=== PATIENT | female | born 1960 | race Caucasian/White ===

== ENCOUNTER → 2016-08-25 | Outpatient (CLI) | payer BC ==
--- NOTE | 2016-08-25 22:10 | MR ---
EXAMINATION TYPE: MR lumbar spine wo con DATE OF EXAM: 08/25/2016 2:54 PM COMPARISON: NONE HISTORY: lumbar radiculopathy, back and hip pain TECHNIQUE: Multiplanar, multisequence images of the lumbar spine were acquired. L1-L2: Normal disc appearance without desiccation. No herniation, protrusion or disc bulging. No ca nal stenosis is present. Foramina are patent bilaterally. L2-L3: Normal disc appearance without desiccation. No herniation, protrusion or disc bulging. No ca nal stenosis is present. Foramina are patent bilaterally. L3-L4: Normal disc appearance without desiccation. No herniation, protrusion or disc bulging. No ca nal stenosis is present. Foramina are patent bilaterally. L4-L5: Posterior central disc bulge causes anterior mass effect on the thecal sac. There is some mild facet arthropathy, no significant central stenosis. L5-S1: Circumferential extension of endplate disc complex causes mild foraminal encroachment, contrib uting by scoliosis. There is facet arthropathy changes, minimal posterior broad-based disc bulge caus es slight anterior mass effect on the thecal sac Lumbar segments are intact. No paraspinal masses are identified. Conus medullaris has a normal appe arance. Loss of disc height and signal greatest at L4-5, there is endplate discogenic marrow signal c hange. The conus is at L1-2 and shows an unremarkable appearance. There is a spinal curvature. IMPRESSION: Mild degenerative disc disease and facet arthropathy. No significant central stenosis, there is spina l curvature.
== END | disposition home or self-care (01) ==
LOC: RADMRIMAIN 14:02
PROVIDERS: ATTEND Nurse Practitioner
DX: M51.16 Intervertebral disc disorders with radiculopathy, lumbar region (principal); M46.96 Unspecified inflammatory spondylopathy, lumbar region; M41.86 Other forms of scoliosis, lumbar region
CPT/HCPCS: 72148

== ENCOUNTER → 2016-10-26 | Outpatient (CLI) | payer BC ==
--- NOTE | 2016-10-30 11:21 | MM ---
Reason for exam: screening (asymptomatic). Last mammogram was performed 1 year and 1 month ago. History: Patient is postmenopausal and history of other cancer. Physical Findings: A clinical breast exam by your physician is recommended on an annual basis and results should be correlated with mammographic findings. MG Screening Mammo w CAD Bilateral CC and MLO view(s) were taken. Prior study comparison: September 13, 2015, mammogram, performed at [facility]. November 07, 2011, mammogram, performed at [facility]. There are scattered fibroglandular densities. No significant changes when compared with prior studies. ASSESSMENT: Negative, BI-RAD 1 RECOMMENDATION: Routine screening mammogram of both breasts in 1 year.
== END ==
LOC: RADMAMWWP 13:33
PROVIDERS: ATTEND Family Medicine
DX: Z12.31 Encounter for screening mammogram for malignant neoplasm of breast (principal)

== ENCOUNTER → 2017-06-13 | Outpatient (CLI) | payer BC ==
--- NOTE | 2017-06-13 12:57 | CONS ---
CONSULTATION DATE OF SERVICE: 06/13/2017 A 56-year-old lady has been evaluated in Sleep Center for her sleep problem including possibility of obstructive, periodic limb movements and restless legs. HISTORY OF PRESENT ILLNESS/SLEEP WAKE EVALUATION: SLEEP SCHEDULE: Patient's usual sleep schedule from around 8 to 8:30 p.m. until 7 to 8:30 a.m. FALLING ASLEEP: She always has problem with falling asleep and sometimes it may take several hours for her to fall asleep. DURING THE SLEEP: She snores according to her and she wakes up from sleep 7 times with nocturia, gasping for air, choking, dry mouth, heartburn. She has difficulties to fall asleep, also secondary to restless leg symptoms. No history of hypnagogic hallucinations, sleep paralysis or cataplexy. [place] Sleepiness Scale is 5. PAST MEDICAL HISTORY: Positive for hypertension, hyperlipidemia, back problems. PAST SURGICAL HISTORY: Bladder suspension, tonsillectomy, tubal ligation. MEDICATIONS: Hydroxyzine, niacin, metoprolol, meloxicam. SOCIAL HISTORY: Negative for smoking or using alcohol. REVIEW OF SYSTEMS: Difficulties to initiate sleep, multiple awakenings from sleep with choking and nocturia and restless legs symptoms. No fevers. No double vision. No recent chest pain. No shortness of breath. No abdominal pain. No bleeding episodes. No blood in urine. No seizure episodes. FAMILY HISTORY: Hypertension, heart problems, hyperlipidemia, asthma, sleep apnea, snoring, diabetes, restless legs. PHYSICAL EXAM: During physical exam, a lady without distress. VITAL SIGNS: BP 143/92, HR 76, RR 16, height 5 feet 8 inches, weight 218, BMI 33.1. Neck 15-1/2 inches in circumference. Temp 97.9. Oxygen saturation in room air 98%. HEENT: PERRLA, EOMI. Oropharynx extremely low position of soft palate. Mallampati 4. Some restriction of nasal breathing. NECK: Supple, no JVD. Thyroid is not palpable. LUNGS: Clear to percussion and to auscultation. Good air exchange. No wheezing or rhonchi. HEART: S1, S2 regular. No murmurs, gallops, or rubs. ABDOMEN: Slightly obese. EXTREMITIES: No clubbing or cyanosis. GOLF STUD RIVETER: Awake, alert, and oriented X3. Cranial nerves 2 to 7 intact. There is no fasciculation or atrophy. noted. No focal deficits observed. IMPRESSION: 1. Snoring, multiple awakenings from sleep with nocturia and choking extremely low position of soft palate, obstructive sleep apnea-hypopnea syndrome. 2. Difficulties to initiate sleep, psychophysiological insomnia. 3. Symptoms of restless legs difficulties to initiate sleep could be related to restless legs. 4. Hypertension. 5. Hyperlipidemia. 6. Back problems. 7. Status post bladder suspension. 8. Status post tonsillectomy. 9. Status post tubal ligation. PLAN: 1. Polysomnography for evaluation of patient's breathing during sleep and to check for her periodic limb movements and possibility of restless legs. 2. CPAP/BiPAP titration if sleep study confirms obstructive sleep apnea-hypopnea syndrome. 3. Preferable position during sleep on the side. 4. No driving if patient feels any sleepiness. Patient is aware of civil and criminal liability for unsafe driving. 5. I will see patient for follow up visit to explain results of testing and following plan. 6. Different psychological techniques for treatment of insomnia, should include stimulus control, paradoxical intention, worry time. I discussed it with the patient. Thank you very much for allowing me to participate management of your patient. Sincerely. Leander Ramos MD, PhD, FAASM Diplomat of [employer] Refractory Mixer of [facility] [place] MMODL / RODOLFO: [id number] /
== END | disposition home or self-care (01) ==
LOC: SLEEP 11:47
PROVIDERS: ATTEND Internal Medicine
DX: G47.33 Obstructive sleep apnea (adult) (pediatric) (principal); F51.04 Psychophysiologic insomnia; I10 Essential (primary) hypertension; E78.5 Hyperlipidemia, unspecified; Z98.890 Other specified postprocedural states
CPT/HCPCS: 99211

== ENCOUNTER → 2017-10-24 | Outpatient (CLI) | payer BC ==
--- NOTE | 2017-10-24 15:39 | PN ---
PROGRESS NOTE DATE OF SERVICE: 10/24/2017 57-year-old lady who has been followed in Sleep Center for treatment of obstructive sleep apnea-hypopnea syndrome. Recently patient had a polysomnogram and CPAP titration and I discussed results of sleep studies with patient in details. Polysomnogram showed moderate obstructive sleep apnea with apnea-hypopnea index 25.3, and oxygen desaturation to 83.4%. She was on control with CPAP at 8 cm of water. Subsequently patient received her CPAP unit and started to use it. She is able to use CPAP equipment without any problems. She feels better while she sleeps. She does not wake up from sleep anymore and she does not feel too tired and sleepy as she was before. I checked her CPAP unit. CPAP pressure is 8 cm of water. Usage is 100% of the time more than 4 hours. Average 6.8 hours. Leak is only 5 L/minute which is perfect. Apnea- hypopnea index for the last month 1.7 for the last night, 0.8. CURRENT MEDICATIONS: Hydroxyzine, niacin, metoprolol, meloxicam. PHYSICAL EXAM: Patient in no distress. BP 122/70, HR 76, RR 16, weight 212, temp 98.1. Oxygen saturation on room air 95%. Oropharynx extremely low position of soft palate. Abdomen slightly obese. Neck Supple, no JVD. Thyroid is not palpable. LUNGS Clear to percussion and to auscultation. Good air exchange. No wheezing or rhonchi. HEART S1, S2 regular. No murmurs, gallops, or rubs. ABDOMEN: Slightly obese. Soft and nontender. Bowel sounds are present. No organomegaly appreciated. EXTREMITIES No clubbing or cyanosis. CABLE SPLICER APPRENTICE Awake, alert, and oriented X3. Cranial nerves 2 to 7 intact. There is no fasciculation or atrophy. noted. No focal deficits observed. IMPRESSION: 1. Apnea-hypopnea syndrome; apnea-hypopnea index 25.3 with oxygen saturation to 83.4% on control with CPAP at 8 cm of water. Patient demonstrated 100% compliance with treatment benefitting from treatment. 2. Hypertension. 3. Hyperlipidemia. 4. History of restless leg symptoms. 5. Back problems. 6. Status post bladder suspension. 7. Status post tonsillectomy. 8. Status post tubal ligation. PLAN: 1. Patient will continue to use CPAP equipment every night for the whole night. 2. Watching and losing weight. 3. Sleep hygiene today with regular time in bed for at least 7 to 8 hours. 4. No driving if feeling sleepiness. 5. Followup visit in 10 months, it has been 1 year since we did the sleep study. Thank you very much for allowing me to participate in management of your patient. Sincerely, Leander Ramos MD, PhD, FAASM Diplomat of [employer] Customs Broker of [facility] [place] MMODL / IJN: [id number] /
== END | disposition home or self-care (01) ==
LOC: SLEEP 13:37
PROVIDERS: ATTEND Internal Medicine
DX: G47.33 Obstructive sleep apnea (adult) (pediatric) (principal); G25.81 Restless legs syndrome; I10 Essential (primary) hypertension; E78.5 Hyperlipidemia, unspecified; Z90.89 Acquired absence of other organs; Z98.51 Tubal ligation status; Z79.899 Other long term (current) drug therapy; Z99.89 Dependence on other enabling machines and devices

== ENCOUNTER → 2017-11-18 | Outpatient (CLI) | payer BC ==
--- NOTE | 2017-11-20 07:23 | MM ---
Reason for exam: screening (asymptomatic). Last mammogram was performed 1 year and 1 month ago. History: Patient is postmenopausal and history of other cancer. Physical Findings: A clinical breast exam by your physician is recommended on an annual basis and results should be correlated with mammographic findings. MG Screening Mammo w CAD Bilateral CC and MLO view(s) were taken. Prior study comparison: October 26, 2016, bilateral MG screening mammo w CAD. September 13, 2015, mammogram, performed at [facility]. There are scattered fibroglandular densities. No suspicious abnormality. No significant changes when compared with prior studies. ASSESSMENT: Negative, BI-RAD 1 RECOMMENDATION: Routine screening mammogram of both breasts in 1 year.
== END ==
LOC: RADMAMWWP 14:49
PROVIDERS: ATTEND Family Medicine
DX: Z12.31 Encounter for screening mammogram for malignant neoplasm of breast (principal)
CPT/HCPCS: 77067

== ENCOUNTER 2018-11-11 10:43 | Day surgery (SDC) | payer BC ==
[2018-11-10 10:16] VITALS: BMI 31.8
[~2018-11-11 10:43] MED LIST: LACTATED RINGERS 1,000 ML IV SCH
[2018-11-11 10:59] VITALS: RESP 16; TEMP 98.1
[2018-11-11] MEDS ORDERED: LIDOCAINE 1% INJ 10MG/ML (20 ML MDV) ONE (13:01)
[2018-11-11] MEDS ORDERED: MIDAZOLAM 2 MG/2 ML VIAL ONE (13:01)
[2018-11-11] MEDS ORDERED: PROPOFOL 10 MG/ML 20 ML VIAL IV ONE (13:01)
[2018-11-11] MEDS ORDERED: fentaNYL (PF) 50 MCG/ML 2 ML AMP ONE (13:01)
--- NOTE | 2018-11-11 14:10 | P.PCN ---
Date of Procedure: 11/11/18 Procedure(s) Performed: Procedure: Total colonoscopy. Preoperative diagnosis: Screening for neoplasia. Postoperative diagnosis: Diverticulosis with no evidence of acute diverticulitis, strictures, polyps or cancer. Preparation: HalfLytely prep. Sedation: Was provided by anesthesia Brief clinical history: The patient is a 58-year-old female who was scheduled for this evaluation for screening for neoplasia age being her risk factor. She had a prior exam 10 years ago. The patient has no abdominal complaints, bleeding or anemia. Procedure: With the patient on her left lateral decubitus position and after informed consent and adequate sedation, the perianal area was inspected and it did not show any fissures or fistulas there were no masses felt on digital rectal examination. The Olympus CFH 190L video colonoscope was then inserted in the rectum in the usual fashion and advanced to the cecum. There were multiple diverticular orifices seen scattered on the left side and occasional orifices around the hepatic flexure but there was no evidence of acute diverticulitis or strictures. The mucosa appeared healthy. No polyps or tumors were seen. The patient tolerated the procedure well. Plan: The patient was reassured. Discussed dietary measures. She will follow- up with you as planned and I recommended repeat exam in 10 years.
[2018-11-11 14:17] VITALS: BP 117/78; PULSE 58
== END 2018-11-11 14:04 | disposition home or self-care (01) ==
LOC: ORWHC2ENDO 10:43
DX: Z12.11 Encounter for screening for malignant neoplasm of colon (principal); K57.30 Diverticulosis of large intestine without perforation or abscess without bleeding; I10 Essential (primary) hypertension; E78.5 Hyperlipidemia, unspecified; N39.3 Stress incontinence (female) (male); Z88.5 Allergy status to narcotic agent; Z88.8 Allergy status to other drugs, medicaments and biological substances; Z79.82 Long term (current) use of aspirin; Z79.891 Long term (current) use of opiate analgesic; Z79.899 Other long term (current) drug therapy
CPT/HCPCS: J2250; J2001; J3010; J2704; G0121

== ENCOUNTER → 2018-11-13 | Outpatient (CLI) | payer BC ==
--- NOTE | 2018-11-13 18:07 | PN ---
PROGRESS NOTE DATE OF SERVICE: 11/13/2018. 58-year-old lady has been followed in Sleep Center for treatment of obstructive sleep apnea-hypopnea syndrome. The patient successfully continues to use her CPAP equipment every night for the whole night. No significant problems with the mask. She is using Dream Wear under the nose mask. No snoring with the machine. [place] Sleepiness Scale today is only 1, which is absolutely great. I checked patient's CPAP unit. CPAP pressure is 8 cm of water. Usage is every night more than 4 hours. Average usage is 6.6 hours. Leak is only 4 L/minute which is perfect. Apnea-hypopnea index of 0.9, which is absolutely perfect. MEDICATIONS: Niacin, metoprolol, Deal, aspirin, melatonin, and water medication. PHYSICAL EXAM: Patient in no distress. BP 115/70, HR 72, RR 16, height 5 feet 8 inches weight 218.2, body mass index 33.1, oxygen saturation at room air 95%. HEENT: Oropharynx extremely low soft palate, Mallampati 4. NECK: Supple, no JVD. Thyroid is not palpable. LUNGS: Clear to percussion and to auscultation. Good air exchange. No wheezing or rhonchi. HEART: S1, S2 regular. No murmurs, gallops, or rubs. ABDOMEN: Obese. Soft and nontender. Bowel sounds are present. No organomegaly appreciated. EXTREMITIES: No clubbing or cyanosis. PROCESS DEVELOPMENT TECHNICIAN: Awake, alert, and oriented X3. Cranial nerves 2 to 7 intact. There is no fasciculation or atrophy noted. No focal deficits observed. IMPRESSION: 1. Moderate obstructive sleep apnea-hypopnea syndrome. AHI 25.3 with oxygen desaturation to 83.4%. Patient demonstrating 100% compliance with treatment benefitting from treatment. Normal respiration on CPAP. 2. Obesity, patient increased to weight of 6 pounds comparing to the visit last year. 3. Hypertension. 4. Hyperlipidemia. 5. History of restless leg symptoms. 6. Back problems. 7. Status post bladder suspension. 8. Status post tonsillectomy. 9. Status post tubal ligation. PLAN: 1. Patient will continue to use CPAP equipment every night for the whole night. 2. Prescription for all necessary CPAP supplies including DreamWear nasal mask, under the nose mask, tube filters. 3. Losing weight. 4. No driving if feeling sleepiness. 5. Followup visit in 1 year or earlier if patient has any problems. Thank you very much for allowing me to participate in management of your patient. Sincerely, Leander Ramos MD, PhD, FAASM Diplomat of [place] [employer] [place] [employer] Medicine Produce Inspector of [facility] [place] [id number] / ALFREDON: [id number] /
== END | disposition home or self-care (01) ==
LOC: SLEEP 09:08
PROVIDERS: ATTEND Internal Medicine
DX: G47.33 Obstructive sleep apnea (adult) (pediatric) (principal); G25.81 Restless legs syndrome; E66.9 Obesity, unspecified; I10 Essential (primary) hypertension; E78.5 Hyperlipidemia, unspecified; M54.9 Dorsalgia, unspecified; Z99.89 Dependence on other enabling machines and devices; Z79.891 Long term (current) use of opiate analgesic; Z79.2 Long term (current) use of antibiotics; Z68.33 Body mass index [BMI] 33.0-33.9, adult; Z79.82 Long term (current) use of aspirin; Z79.899 Other long term (current) drug therapy; Z98.51 Tubal ligation status; Z98.890 Other specified postprocedural states; Z90.89 Acquired absence of other organs

== ENCOUNTER → 2018-11-26 | Outpatient (CLI) | payer BC ==
--- NOTE | 2018-11-26 11:01 | BD ---
EXAMINATION TYPE: Axial Bone Density DATE OF EXAM: 11/26/2018 COMPARISON: NONE CLINICAL HISTORY: Postmenopausal female Height: 5 FT 7 IN Weight: 217 FRAX RISK QUESTIONS: RISK FACTORS HISTORY OF: Active: YES Postmenopausal woman: PART HYST AGE 36 Lost more than 2 inches in height since high school: YES MEDICATIONS: Additional Medications: METOPROLOL, NIACIN, TRICOR, MEDS FOR BLADDER SPASM, ESTROGEN VAGINAL CREAM,N ORCO, Additional History: EXAM MEASUREMENTS: Bone mineral densitometry was performed using the 6Sense System. Bone mineral density as measured about the Lumbar spine is: ----- L1-L4(G/cm2): 1.232 T Score Values are as follows: ----- L2: 0.2 ----- L3: 0.4 ----- L4: 0.9 ----- L1-L4: 0.4 BASELINE Bone mineral density about the R hip (g/cm2): 0.990 Bone mineral density about the L hip (g/cm2): 1.035 T Score values are as follows: -----R Neck: -0.3 -----L Neck: 0.0 -----R Total: 0.7 -----L Total: 0.6 BASELINE IMPRESSION: Normal (Values between +1 and -1 indicate normal bone mass). Consider repeating this study in 5 year s or sooner if there is some new clinical indication. NOTE: T-SCORE=SD OF THE YOUNG ADULT MEAN.
--- NOTE | 2018-11-26 14:05 | MM ---
Reason for exam: screening (asymptomatic). Last mammogram was performed 1 year ago. History: Patient is postmenopausal and history of other cancer. Physical Findings: A clinical breast exam by your physician is recommended on an annual basis and results should be correlated with mammographic findings. MG Screening Mammo w CAD Bilateral CC and MLO view(s) were taken. Prior study comparison: November 18, 2017, bilateral MG screening mammo w CAD. October 26, 2016, bilateral MG screening mammo w CAD. There are scattered fibroglandular densities. Benign calcifications. No significant changes when compared with prior studies. ASSESSMENT: Benign, BI-RAD 2 RECOMMENDATION: Routine screening mammogram of both breasts in 1 year.
== END | disposition home or self-care (01) ==
LOC: RADMAMWWP 09:47
PROVIDERS: ATTEND Family Medicine
DX: Z12.31 Encounter for screening mammogram for malignant neoplasm of breast (principal); Z13.820 Encounter for screening for osteoporosis
CPT/HCPCS: 77067; 77080

== ENCOUNTER → 2020-11-14 | Outpatient (CLI) | payer BC ==
--- NOTE | 2020-11-16 10:54 | MM ---
Reason for exam: screening (asymptomatic). Last mammogram was performed 2 years ago. History: Patient is postmenopausal and history of other cancer. Physical Findings: A clinical breast exam by your physician is recommended on an annual basis and results should be correlated with mammographic findings. MG Screening Mammo w CAD Bilateral CC and MLO view(s) were taken. Prior study comparison: November 26, 2018, bilateral MG screening mammo w CAD. November 18, 2017, bilateral MG screening mammo w CAD. There are scattered fibroglandular densities. There is chronic nodularity in the left breast. No significant changes when compared with prior studies. ASSESSMENT: Benign, BI-RAD 2 RECOMMENDATION: Routine screening mammogram of both breasts in 1 year.
== END | disposition home or self-care (01) ==
LOC: RADMAMWWP 10:57
PROVIDERS: ATTEND Family Medicine
DX: Z12.31 Encounter for screening mammogram for malignant neoplasm of breast (principal); Z78.0 Asymptomatic menopausal state
CPT/HCPCS: 77067

== ENCOUNTER → 2022-06-14 | Outpatient (CLI) | payer BC ==
--- NOTE | 2022-06-15 09:11 | MM ---
Reason for Exam: Screening (asymptomatic). Last mammogram was performed 1 year(s) and 7 month(s) ago. Patient History: Menarche at age 10. First Full-Term at age 19. Hysterectomy at age 36. Postmenopausal. Other cancer. Risk Values: Diane 5 year model risk: 1.4%. NCI Lifetime model risk: 6.0%. Prior Study Comparison: 11/18/2017 Bilateral Screening Mammogram, [facility]. 11/26/2018 Bilateral Screening Mammogram, [facility]. 11/14/2020 Bilateral Screening Mammogram, [facility]. Tissue Density: There are scattered fibroglandular densities. Findings: Analyzed By CAD. Pattern appears symmetrical and stable. Benign calcifications within the right breast. Chronic nodularity is within normal left breast. No suspicious groups of microcalcifications, spiculated or lobular masses, architectural distortion or other secondary signs of malignancy are mammographically apparent. Overall Assessment: Benign, BI-RAD 2 Management: Screening Mammogram of both breasts in 1 year. A negative mammogram report should not preclude additional follow up of suspicious palpable abnormalities. Patient should continue monthly self breast exam. A clinical breast exam by your physician is recommended on an annual basis and results should be correlated with mammographic findings. Electronically signed and approved by: Cristóbal Cruz D.O. Radiologis
== END | disposition home or self-care (01) ==
LOC: RADMAMWWP 11:14
PROVIDERS: ATTEND Family Medicine
DX: Z12.31 Encounter for screening mammogram for malignant neoplasm of breast (principal); Z78.0 Asymptomatic menopausal state
CPT/HCPCS: 77067

== ENCOUNTER → 2023-10-16 | Outpatient (CLI) | payer BC ==
--- NOTE | 2023-10-16 15:54 | BD ---
EXAMINATION TYPE: Axial Bone Density DATE OF EXAM: 10/16/2023 CLINICAL HISTORY: 63 years old Female. ICD-10 CODE: Z78.0 AYSMPTOMATIC MENOPAUSAL Height: 67in Weight: 243lb FRAX RISK QUESTIONS: Secondary Osteoporosis: RISK FACTORS HISTORY OF: MEDICATIONS: EXAM MEASUREMENTS: Bone mineral densitometry was performed using the Hi-[employer]-T[employer] System. Bone mineral density as measured about the Lumbar spine is: ----- L1-L4(G/cm2): 1.138 T Score Values are as follows: ----- L1: -0.7 ----- L2: -0.3 ----- L3: -0.9 ----- L4: 0.3 ----- L1-L4: -0.3 Z Score Values are as follows: ----- L1: -0.2 ----- L2: 0.1 ----- L3: -0.4 ----- L4: 0.7 ----- L1-L4: 0.1 Bone mineral density has: Decreased -7.6% since study of: 11-26-18 Bone mineral density about the R hip (g/cm2): 1.069 Bone mineral density about the L hip (g/cm2): 1.063 T Score values are as follows: -----R Neck: -1.3 -----L Neck: -0.7 -----R Total: 0.5 -----L Total: 0.4 Z Score values are as follows: -----R Neck: -0.6 -----L Neck: 0.0 -----R Total: 0.8 -----L Total: 0.8 Bone mineral density has: Decreased -1.8% since study of: 11-26-18 FRAX%s: The graph provided illustrates a 7.6% chance for a major osteoporotic fx and a 0.6% chance fo r the hips probability for fx in 10 years time. IMPRESSION: Osteopenia (T Score between -2.5 and -1). There is slightly increased risk of fracture and the patient may be considered for treatment. Re-Screen 2-5 years. NOTE: T-SCORE=SD OF THE YOUNG ADULT MEAN.
--- NOTE | 2023-10-18 11:44 | MM ---
Reason for Exam: Screening (asymptomatic). Last mammogram was performed 1 year(s) and 4 month(s) ago. Patient History: Menarche at age 10. First Full-Term at age 19. Hysterectomy at age 36. Postmenopausal. Other cancer. Risk Values: Diane 5 year model risk: 1.5%. NCI Lifetime model risk: 5.6%. Prior Study Comparison: 11/26/2018 Bilateral Screening Mammogram, [facility]. 11/14/2020 Bilateral Screening Mammogram, [facility]. 06/14/2022 Bilateral MG screening mammo w CAD, [facility]. Tissue Density: There are scattered areas of fibroglandular density. Findings: Analyzed By CAD. There is no suspicious group of microcalcifications or new suspicious mass in either breast. Benign calcifications. Stable chronic nodularity left breast. Overall Assessment: Benign, BI-RAD 2 Management: Screening Mammogram of both breasts in 1 year. . Patient should continue monthly self-breast exams. A clinical breast exam by your physician is recommended on an annual basis. This exam should not preclude additional follow-up of suspicious palpable abnormalities. Note on Diane scores and lifetime risk: 1. A Diane score greater than 3% is considered moderate risk. If this is the case, consider specialist referral to assess eligibility for a risk reducing agent. 2. If overall lifetime risk for the development of breast cancer is 20% or higher, the patient may qualify for future screening with alternating mammogram and breast MRI. Electronically signed and approved by: Chago Padilla M.D. Radiologis
== END | disposition home or self-care (01) ==
LOC: RADMAMWWP 14:00
PROVIDERS: ATTEND Family Medicine
DX: Z12.31 Encounter for screening mammogram for malignant neoplasm of breast (principal); M85.88 Other specified disorders of bone density and structure, other site; Z78.0 Asymptomatic menopausal state
CPT/HCPCS: 77067; 77080